=== PATIENT | male | born 2000 | race Caucasian/White ===

== ENCOUNTER 2023-11-02 18:38 | Emergency (ER) | payer BC, SELFPAY ==
[2023-11-02 18:39] VITALS: BP 145/92; PULSE 102; RESP 18; TEMP 36.4; O2SAT 98; BMI 34.5
[2023-11-02 18:52] LABS: Bacteria 0 SEEN /hpf (None Seen); Mucous, Urine 0 SEEN /hpf (<or=2+); Squamous Epithelial Cells - UA 0 SEEN /hpf (0-5)
[2023-11-02 18:55] LABS: Color, Urine Yellow (Yellow); Glucose, Dipstick Normal (Normal); Ketone-Dipstick Negative (Negative); Leukocyte Esterase-Dipstick Negative /ul (Negative); Nitrite-Dipstick Negative (Negative); Occult Blood-Urine 10 /ul (Negative); Protein-Dipstick Negative (Negative); Urine Bilirubin Dipstick Negative (Negative); Urine Clarity Clear (Clear); Urine Urobilinogen Normal (Normal)
[2023-11-02 19:00] LABS: Red Blood Cells-Urine 0-5 SEEN /hpf (0-5); White Blood Cells 0-5 SEEN /hpf (0-5)
--- NOTE | 2023-11-02 20:12 | EX.ED.DYSGE1 ---
HPI History of Present Illness Chief Complaint: Complaint Informant: patient Narrative Narrative: 23-year-old healthy male 2 days of abnormal urinary frequency and feeling like he is not emptying his bladder all the way. He is having some urgency. He is also drinking a lot and feeling very thirsty and that amount of time. He is not a diabetic that he knows of and has no other medical problems that he knows of. He denies any dysuria, hematuria, testicular pain, abdominal pain, back pain, nausea, vomiting, fevers or chills. He denies any suspicion of an STD, potential exposure to an STD, nor history of them. PFSH PFSH Medical History no medical history no medical history Allergy/AdvReac Type Severity Reaction Status Date / Time No Known Allergies Allergy Verified 11/02/23 18:40 Social History Smoking Status: Never smoker ROS ROS ED Constitutional Constitutional ED: Denies chills or fever(s) Eyes Eyes: Denies change in vision or diplopia ENT ENT ED: Denies rhinorrhea or sore throat Cardiovascular Cardiovascular: Denies chest pain or palpitations Respiratory/Chest Respiratory/Chest: Denies cough or dyspnea Gastrointestinal Gastrointestinal: Denies abdominal pain, diarrhea, nausea or vomiting Genitourinary Genitourinary ED: Reports as per HPI, difficulty urinating, urinary frequency and urinary urgency; Denies dysuria or hematuria Musculoskeletal Musculoskeletal: Denies back pain or neck pain Integumentary Denies abscess or rash Neurologic Neurologic: Denies headache(s), paresthesias or weakness Psychiatric Psychiatric: Denies anxiety or suicidal thoughts EXAM Physical Exam Const Vital Signs: 11/02/23 18:39 Temperature 97.5 F L Temperature Source Temporal Pulse Rate 102 H Respiratory Rate 18 Blood Pressure 145/92 H Blood Pressure Mean 109 Pulse Ox 98 Oxygen Delivery Method Room Air Positive well nourished and well developed General Appearance ED: well developed and NAD HEENT Reports moist mucous membranes normocephalic and atraumatic Eyes PERRL and EOMs intact bilaterally Neck full ROM and supple Resp normal respiratory effort and clear to auscultation bilaterally Cardio regular rate, regular rhythm and no murmurs GI non-tender and non-distended Auscultation: normoactive bowel sounds Palpation: soft Back/Spine no CVA tenderness General Back: other FROM Extremity normal to inspection General Extremety ED: Negative for edema, pulses abnormal or tenderness General Extremity: Negative for edema or pulses abnormal Neuro oriented x3, CN's II-XII intact bilaterally and no sensory deficits noted Sensorium / Orientation: awake and alert Motor Exam: strength 5/5 throughout Skin no rashes or lesions noted and no wounds MDM MDM MDM Narrative Medical decision making narrative: I reviewed his urinalysis, other than a trace of blood, it is negative for all else including infection. Therefore I had nursing check his blood sugar with a fingerstick, under the context of having eaten a Snickers bar an hour or so ago. It was 112, which in context is within normal limits. Patient is doing well otherwise. He is really not having any pain. A kidney stone could be in the differential, UVJ stone could cause some of the symptoms. If it is not obstructing, I may not be causing him pain. I think what I would do is send him home with urine strainers, have him strain for the next couple days and if it does not go away follow-up with his doctor but I do not think he needs an emergent CT now just to see if that is the case. I do not think he needs any other blood work either. I explained all this to him he is comfortable with that plan. Lab Data Attestation: I reviewed the patient's lab results. Labs: Laboratory Results - last 24 hr 11/02/23 11/02/23 18:50 20:13 Urine Color Yellow Urine Clarity Clear Urine pH 6.0 Ur Specific [place] 1.020 Urine Protein Negative Urine Glucose (UA) Normal Urine Ketones Negative Urine Occult Blood 10 H Urine Nitrite Negative Urine Bilirubin Negative Urine Urobilinogen Normal Ur Leukocyte Esterase Negative Urine RBC 0-5 SEEN Urine WBC 0-5 SEEN Ur Squamous Epith Cells 0 SEEN Urine Bacteria 0 SEEN Urine Mucus 0 SEEN POC Glucose 112 H Discharge Plan Triage Chief Complaint: Complaint ED Provider: Grant Gerber Dx/Rx/DC Orders Clinical Impression: Polydipsia, Urinary frequency, Hematuria, microscopic Instructions: ED Kidney Stone No Sx, ED Urine Strainer Primary Care Provider: Care Physician,No Primary Referrals: Unique Baig [Non-Staff] - 1 Week if not improving Care Physician,No Primary [Primary Care Provider] -
[2023-11-02 20:30] LABS: Bedside Glucose 112 mg/dL (74-106)
[2023-11-02 21:05] VITALS: PULSE 81; RESP 16; O2SAT 97
== END 2023-11-02 21:06 | disposition home or self-care (01) ==
PROVIDERS: Emergency Provider Emergency Medicine; Visit Provider Emergency Medicine
DX: R35.0 Frequency of micturition (principal); R31.29 Other microscopic hematuria; R63.1 Polydipsia
CPT/HCPCS: 81001; 82962; 99282

== ENCOUNTER 2024-09-25 00:47 | Emergency (ER) | payer BC, SELFPAY ==
[2024-09-25 00:48] VITALS: BP 131/88; PULSE 83; RESP 16; TEMP 36.7; O2SAT 100
--- NOTE | 2024-09-25 01:35 | RAD_ITS ---
EXAM: XR LEFT HAND COMPLETE, 3 OR MORE VIEWS CLINICAL INDICATION: injury TECHNIQUE: Frontal, lateral and oblique views of the left hand. COMPARISON: No relevant prior studies available. FINDINGS: BONES/JOINTS: Unremarkable. No acute fracture. No subluxation. Normal alignment. Preservation of the joint space. No sclerotic or destructive changes observed. SOFT TISSUES: Unremarkable. No soft tissue swelling or gas. No radiopaque foreign body. RAD/Hand Min 3 Views IMPRESSION: Negative left hand x-rays. Electronically Signed: Elliot Chen MD at 2:43 EST ,
[2024-09-25 01:48] VITALS: BP 111/80; PULSE 80; RESP 16; TEMP 36.7; O2SAT 100
--- NOTE | 2024-09-25 01:50 | EDS_ITS ---
HPI History of Present Illness Chief Complaint: Upper Extremity Injury Informant: patient Narrative Narrative: Patient is a 23-year-old male with no significant past medical history. He is [id number]. He states roughly 24 hours ago he was helping his dad move a couch. He states that his left hand/thumb got stuck between the couch and a door and it was crushed. He states he has had pain swelling and redness and he is unsure if there was potential fracture or development of infection and therefore comes in for evaluation [facility] Medical History no medical history no medical history Home Medications ?Medication ?Instructions ?Recorded ?Last Taken ?Type sulfamethoxazole 800 1 tab PO BID 7 days #14 tabs 09/25/24 Unknown Rx mg-trimethoprim 160 mg tablet (Bactrim DS) Allergy/AdvReac Type Severity Reaction Status Date / Time No Known Allergies Allergy Verified 11/02/23 18:40 Surgical History no surgical history Social History Smoking Status: Current every day smoker tobacco type: cigarettes ROS ROS ED Constitutional Constitutional ED: Denies chills or fever(s) ENT ENT ED: Denies sore throat Cardiovascular Cardiovascular: Denies chest pain Respiratory/Chest Respiratory/Chest: Denies cough or dyspnea Gastrointestinal Gastrointestinal: Denies abdominal pain, diarrhea, nausea or vomiting Genitourinary Genitourinary ED: Denies dysuria Musculoskeletal Musculoskeletal: Reports other Details: Positive left hand/thumb pain Integumentary Reports Abrasions and other Details: Positive abrasion left thumb Neurologic Neurologic: Denies headache(s), paresthesias or weakness Hematologic/Lymphatic Hematologic/Lymphatic: Denies easy bleeding or easy bruising EXAM Physical Exam Const Vital Signs: 09/25/24 00:48 Temperature 98.0 F Temperature Source Oral Pulse Rate 83 Respiratory Rate 16 Blood Pressure 131/88 H Blood Pressure Mean 102 Pulse Ox 100 Oxygen Delivery Method Room Air Positive well nourished and well developed General Appearance ED: well developed HEENT HEENT Narrative: Normocephalic atraumatic Eyes PERRL and EOMs intact bilaterally Neck supple Resp normal respiratory effort and clear to auscultation bilaterally Cardio regular rate and regular rhythm Extremity Extremity Narrative: Left upper extremity is neurovascularly intact; AIN/PIN are intact and normal. Patient has a 25% subungual hematoma to the left thumbnail/nailbed. Along the distal aspect of the left thumb there is mild surrounding soft tissue erythema and abrasion. No obvious signs of cellulitis or abscess. No felon noted. No lymphangitic streaking. No bony deformity or joint effusion. No ligamentous laxity or tendon injury noted. Remainder of the exam is normal Neuro oriented x3, CN's II-XII intact bilaterally, moves all extremities and no focal motor deficits Sensorium / Orientation: alert Motor Exam: strength 5/5 throughout Psych mental status grossly normal Skin Skin Narrative: Soft tissue changes around the left thumb as documented above MDM MDM MDM Narrative Medical decision making narrative: Patient arrived to the ER with direct trauma to the left thumb that occurred roughly 24 hours ago. By exam he does have a subungual hematoma but it encompasses less than 50% of the nailbed so there is no need for trephination. He has no obvious signs of ligamentous or tendon injury or signs of bony deformity but with concern for potential fracture or underlying foreign body an x-ray was obtained. X-ray revealed no acute fracture dislocation or retained foreign body indicating patient has a thumb contusion. He does have mild surrounding erythema but this is more consistent with a superficial abrasion and not infectious process and therefore there is no need for emergent antibiotic. Patient was instructed on symptomatic care and is otherwise safe for discharge. Radiography Diagnostic Testing: X-ray of the left hand as interpreted by the emergency medicine physician reveals no acute fracture dislocation joint effusion or retained foreign body Discharge Plan Triage Chief Complaint: Upper Extremity Injury ED Provider: Boo Barnett Dx/Rx/DC Orders Clinical Impression: Contusion of left thumb, Subungual hematoma Instructions: Bone Contusion, ED Subungual Hematoma Prescriptions: New sulfamethoxazole-trimethoprim [Bactrim DS] 800-160 mg tablet 1 tab PO BID 7 Days Qty: 14 0RF Primary Care Provider: Andrea Patel NP Referrals: Andrea Patel [facility], [facility] [Primary Care Provider] - Activity Restrictions/Additional Instructions: Your x-ray showed no broken bones. Please take the antibiotic if you develop worsening redness or lymphangitic streaking over the next few days and return to the ER should you have any further concerns Print Language: Occitan Disposition Disposition: Home, Self Care Discharge Date/Time: 09/25/24 01:58
== END 2024-09-25 01:58 | disposition home or self-care (01) ==
PROVIDERS: Emergency Provider Emergency Medicine; PCP Nurse Practitioner Primary Care; Visit Provider Emergency Medicine
DX: S60.112A Contusion of left thumb with damage to nail, initial encounter (principal); W23.2XXA Caught, crushed, jammed or pinched between a moving and stationary object, initial encounter; Y93.89 Activity, other specified; F17.210 Nicotine dependence, cigarettes, uncomplicated
CPT/HCPCS: 73130; 99282